=== PATIENT | female | born 1995 | race African-American/Black ===

== ENCOUNTER 2017-06-07 01:00 | Emergency (ER) | payer OTHER ==
[~2017-06-07] VITALS: Ht 162.6 cm; Wt 81.7 kg
[2017-06-07 02:20] VITALS: BP 145/77
[2017-06-07 04:36] LABS: URINE COLOR YELLOW; URINE GLUCOSE-RANDOM* NEGATIVE (Negative); URINE KETONES NEGATIVE (Negative); URINE PROTEIN (DIPSTICK) NEGATIVE (Negative)
[2017-06-07 04:37] LABS: SQUAMOUS 0-3 Few /LPF (0-3); URINE BILIRUBIN NEGATIVE (Negative); URINE BLOOD 3+ (Negative); URINE LEUKOCYTES-REFLEX NEGATIVE (Negative); URINE UROBILINOGEN 0.2 E.U./dl (0.2-1.0)
[2017-06-07 04:39] LABS: CASTS None Seen /LPF (None Seen); URINE WBC-REFLEX None Seen /HPF (0-5)
[2017-06-07 04:40] LABS: CRYSTALS None Seen /LPF (None Seen)
== END 2017-06-07 02:25 | disposition home or self-care (01) ==
LOC: ER 01:00
PROVIDERS: Emergency Medicine
DX: O20.0 Threatened abortion (principal); Z3A.12 12 weeks gestation of pregnancy

== ENCOUNTER 2017-11-16 04:07 | Emergency (ER) | payer OTHER ==
[~2017-11-16] VITALS: Ht 162.6 cm; Wt 78.9 kg
[2017-11-16 04:27] LABS: URINE BILIRUBIN NEGATIVE (Negative); URINE BLOOD NEGATIVE (Negative); URINE CLARITY CLEAR; URINE COLOR YELLOW; URINE GLUCOSE-RANDOM* NEGATIVE (Negative); URINE KETONES NEGATIVE (Negative); URINE LEUKOCYTES NEGATIVE (Negative); URINE NITRITE NEGATIVE (Negative); URINE PROTEIN (DIPSTICK) NEGATIVE (Negative); URINE SPECIFIC GRAVITY >= 1.030 (1.005-1.035); URINE UROBILINOGEN 0.2 E.U./dl (0.2-1.0)
== END 2017-11-16 05:40 | disposition home or self-care (01) ==
LOC: ER 04:07
PROVIDERS: Emergency Medicine
DX: O20.0 Threatened abortion (principal); Z3A.12 12 weeks gestation of pregnancy

== ENCOUNTER 2018-07-20 03:31 | Emergency (ER) | payer OTHER ==
[~2018-07-20] VITALS: Ht 165.1 cm; Wt 89.8 kg
[2018-07-20] MEDS ORDERED: BUTALB-APAP-CA1 EACH PO (04:26)
[2018-07-20 05:59] VITALS: BP 120/58
== END 2018-07-20 05:59 | disposition home or self-care (01) ==
LOC: ER 03:31
DX: G44.209 Tension-type headache, unspecified, not intractable (principal)

== ENCOUNTER 2018-10-25 22:57 | Emergency (ER) | payer OTHER ==
[~2018-10-25] VITALS: Ht 154.9 cm; Wt 63.5 kg
[~2018-10-25 22:57] MED LIST: BUTALB-APAP-CA1 EACH PO
[2018-10-25 23:37] LABS: URINE BILIRUBIN NEGATIVE (Negative); URINE BLOOD NEGATIVE (Negative); URINE CLARITY CLEAR; URINE COLOR YELLOW; URINE GLUCOSE-RANDOM* NEGATIVE (Negative); URINE KETONES NEGATIVE (Negative); URINE LEUKOCYTES-REFLEX TRACE (Negative); URINE NITRITE-REFLEX NEGATIVE (Negative); URINE PROTEIN (DIPSTICK) NEGATIVE (Negative); URINE SPECIFIC GRAVITY 1.025 (1.005-1.035); URINE UROBILINOGEN 0.2 E.U./dl (0.2-1.0)
[2018-10-26 00:02] LABS: ANION GAP 12 mmol/L (7-16); BUN 7 mg/dL (7-18); CALCIUM 8.5 mg/dL (8.5-10.1); CHLORIDE 105 mmol/L (98-107); CO2 20 mmol/L (21-32); CREATININE 0.6 mg/dL (0.6-1.0); GLUCOSE 94 mg/dL (74-106); POTASSIUM 3.5 mmol/L (3.5-5.1); SODIUM 137 mmol/L (136-145)
[2018-10-26 00:09] LABS: ALBUMIN 2.8 g/dL (3.4-5.0); LIPASE < 10 U/L (73-393); SGOT 12 U/L (15-37); SGPT 17 U/L (30-65); TOTAL BILIRUBIN 0.2 mg/dL (<0.1-1.0); TOTAL PROTEIN 6.9 g/dL (6.4-8.2)
[2018-10-26 00:33] LABS: ABSOLUTE NEUTROPHILS 5.7 thou/uL (1.4-8.2); BASOPHILS 0.7 % (0.0-2.0); EOSINOPHILS 1.8 % (0.0-3.0); HEMATOCRIT 33.2 % (37.0-47.0); HEMOGLOBIN 11.1 gm/dL (12.0-15.0); LYMPHOCYTES 20.3 % (24.0-44.0); MCH 24.4 pg (26.0-34.0); MCHC 33.3 g/dL (28.0-37.0); MCV 73.2 fL (80.0-100.0); MONOCYTES 5.9 % (1.0-8.0); PLATELET COUNT 238 thou/uL (150-400); POLYS 71.3 % (36.0-66.0); RBC 4.54 mil/uL (4.20-5.00); RDW 15.2 % (10.5-14.5)
[2018-10-26 01:50] LABS: MICROCYTES 1+
[2018-10-26 01:51] LABS: LARGE PLATELETS OCCASIONAL
[2018-10-26] MEDS ORDERED: PROMS25 WY RECTAL (02:17)
[2018-10-26 03:00] VITALS: BP 92/50
== END 2018-10-26 03:02 | disposition home or self-care (01) ==
LOC: ER 22:57
PROVIDERS: Emergency Medicine
DX: O00.01 Abdominal pregnancy with intrauterine pregnancy (principal); R10.30 Lower abdominal pain, unspecified; Z88.6 Allergy status to analgesic agent; Z98.890 Other specified postprocedural states; Z3A.15 15 weeks gestation of pregnancy

== ENCOUNTER 2018-11-11 22:48 | Emergency (ER) | payer OTHER ==
[~2018-11-11] VITALS: Ht 165.1 cm; Wt 80.7 kg
[~2018-11-11 22:48] MED LIST changes: +PROMS25 WY RECTAL
[2018-11-11] MEDS ORDERED: TYLENOL EXTRA500 MG PO (22:54)
[2018-11-11 23:41] LABS: URINE BILIRUBIN NEGATIVE (Negative); URINE BLOOD NEGATIVE (Negative); URINE CLARITY CLEAR; URINE COLOR YELLOW; URINE GLUCOSE-RANDOM* NEGATIVE (Negative); URINE KETONES NEGATIVE (Negative); URINE NITRITE-REFLEX NEGATIVE (Negative); URINE PROTEIN (DIPSTICK) NEGATIVE (Negative); URINE SPECIFIC GRAVITY 1.025 (1.005-1.035); URINE UROBILINOGEN 0.2 E.U./dl (0.2-1.0)
[2018-11-11 23:43] LABS: URINE LEUKOCYTES-REFLEX 1+ (Negative)
[2018-11-12] LABS: CASTS None Seen /LPF (None Seen); CRYSTALS None Seen /LPF (None Seen); MUCUS 0-3 Light strn/LPF (None Seen); SQUAMOUS 4-10 Moderate /LPF (0-3); URINE RBC None Seen /HPF (0-2); URINE WBC-REFLEX 0-5 Rare /HPF (0-5)
[2018-11-12 00:10] LABS: ABSOLUTE NEUTROPHILS 5.8 thou/uL (1.4-8.2); BASOPHILS 0.8 % (0.0-2.0); EOSINOPHILS 2.1 % (0.0-3.0); HEMATOCRIT 33.3 % (37.0-47.0); LYMPHOCYTES 22.4 % (24.0-44.0); MCH 24.1 pg (26.0-34.0); MCHC 32.9 g/dL (28.0-37.0); MCV 73.1 fL (80.0-100.0); MONOCYTES 6.8 % (1.0-8.0); PLATELET COUNT 234 thou/uL (150-400); POLYS 67.9 % (36.0-66.0); RBC 4.55 mil/uL (4.20-5.00); RDW 15.6 % (10.5-14.5); WBC 8.5 thou/uL (4.0-11.0)
[2018-11-12 00:27] LABS: CALCIUM 8.5 mg/dL (8.5-10.1); CREATININE 0.6 mg/dL (0.6-1.0); POTASSIUM 3.3 mmol/L (3.5-5.1)
[2018-11-12] MEDS ORDERED: PRENATAL VITAM1 EACH PO (01:58)
[2018-11-12 02:00] VITALS: BP 133/78
== END 2018-11-12 02:01 | disposition home or self-care (01) ==
LOC: ER 22:48
PROVIDERS: Emergency Medicine
DX: O26.892 Other specified pregnancy related conditions, second trimester (principal); Z3A.17 17 weeks gestation of pregnancy; R10.32 Left lower quadrant pain; Z88.8 Allergy status to other drugs, medicaments and biological substances

== ENCOUNTER 2019-01-17 01:18 | Emergency (ER) | payer OTHER ==
[~2019-01-17] VITALS: Ht 165.1 cm; Wt 92.1 kg
[~2019-01-17 01:18] MED LIST changes: +PRENATAL VITAM1 EACH PO; +TYLENOL EXTRA500 MG PO
[2019-01-17 02:15] VITALS: BP 126/74
== END 2019-01-17 02:15 | disposition short-term general hospital (02) ==
LOC: ER 01:18
DX: O60.02 Preterm labor without delivery, second trimester (principal); O26.892 Other specified pregnancy related conditions, second trimester; R10.9 Unspecified abdominal pain; Z3A.27 27 weeks gestation of pregnancy; Z88.8 Allergy status to other drugs, medicaments and biological substances

== ENCOUNTER 2021-03-24 21:45 | Emergency (ER) | payer OTHER ==
[~2021-03-24] VITALS: Ht 167.6 cm; Wt 99.8 kg
[2021-03-24 23:41] LABS: HEMATOCRIT 40.4 % (37.0-47.0); HEMOGLOBIN 12.7 gm/dL (12.0-15.0); MCH 23.8 pg (26.0-34.0); MCHC 31.4 g/dL (28.0-37.0); MCV 75.6 fL (80.0-100.0); RBC 5.35 mil/uL (4.20-5.00); RDW 17.3 % (10.5-14.5); WBC 7.3 thou/uL (4.0-11.0)
[2021-03-24 23:49] LABS: CALCIUM 8.4 mg/dL (8.5-10.1); POTASSIUM 3.8 mmol/L (3.5-5.1)
[2021-03-25 01:10] VITALS: BP 140/84
== END 2021-03-25 01:13 | disposition home or self-care (01) ==
LOC: ER 21:45
PROVIDERS: Nurse Practitioner Family
DX: O02.1 Missed abortion (principal); Z88.5 Allergy status to narcotic agent

== ENCOUNTER 2021-11-06 02:23 | Emergency (ER) | payer OTHER ==
[~2021-11-06] VITALS: Ht 162.6 cm; Wt 74.8 kg
[2021-11-06 02:52] LABS: URINE BILIRUBIN NEGATIVE (Negative); URINE BLOOD NEGATIVE (Negative); URINE CLARITY CLEAR; URINE COLOR YELLOW; URINE GLUCOSE-RANDOM* NEGATIVE (Negative); URINE KETONES NEGATIVE (Negative); URINE LEUKOCYTES-REFLEX NEGATIVE (Negative); URINE NITRITE-REFLEX NEGATIVE (Negative); URINE PROTEIN (DIPSTICK) NEGATIVE (Negative)
[2021-11-06 06:37] VITALS: BP 143/54
[2021-11-06] MEDS ORDERED: MELOXICAM15 MG PO (06:38)
== END 2021-11-06 06:44 | disposition home or self-care (01) ==
LOC: ER 02:23
PROVIDERS: Emergency Medicine
DX: T83.84XA Pain due to genitourinary prosthetic devices, implants and grafts, initial encounter (principal); N72 Inflammatory disease of cervix uteri; Z91.040 Latex allergy status; Z88.1 Allergy status to other antibiotic agents